=== PATIENT | female | born 1940 | race Caucasian/White ===

== ENCOUNTER 2016-04-22 00:11 | Emergency (ER) | payer OTHER ==
[~2016-04-22] VITALS: Ht 165.1 cm; Wt 142.7 kg
[~2016-04-22 00:11] MED LIST: ACETAMINOPHEN325 M1 PO; ACIDOPHILUS PROB1 MG PO; ADVAIR 250-501 EACH IH; ADVAIR 250/501 DISK IH; ADVAIR 500/501 DISK IH; ALBUTEROL2.5 MG/3 M IH; ALPRAZOLAM0.25 M2 PO; ALPRAZOLAM0.5 MG PO; AMLODIPINE BESY10 MG PO; AMLODIPINE BESYL5 MG PO; AMMONIUM LACTA224 GM TP; ANALGESIC325 MG PO; ARTIFICIAL TEA3.5 GM OP; ARTIFICIAL TEAR1510 BOTH EYES; ASPIR-TRIN325 M1 PO; ASPIRIN EC325 MG PO; ASPIRIN325 MG PO; ATARAX,VISTARIL25 MG PO; ATHENOL325 MG PO; ATIVAN2 MG/ML IV; ATROVENT 0.03%30 ML BOTH NARES; ATROVENT 00.5 MG/2.5 IH; AYR50 ML BOTH NARES; AZACTAM1 GM IM; AZITHROMYCIN500 M1 PO; Advair 250/50 Diskus IH; BACTRIM,SEPT1 TABLET PO; BENADRYL25 MG PO; BISAC-EVAC10 MG PR; BUMETANIDE0.5 MG PO; BUMETANIDE1 MG PO; BUMEX0.5 MG PO; BUMEX1 MG PO; Bactrim,Septra DS 80 PO; Bumex PO; CALCIUM 600 +1 EA11 PO; CALCIUM 600 +1 EAC2 PO; CALCIUM500 M4 PO; CARVEDILOL12.5 MG PO; CEFEPIME HCL1 GM IV; CEFTIN500 MG PO; CEFUROXIME500 MG PO; CEPACOL SORE THR3 MG MM; CLARITIN,ALAVAR10 MG PO; CLARITIN10 M3 PO; CLINDAMYCIN HC300 MG PO; COLACE100 MG PO; COREG12.5 M1 PO; COREG12.5 MG PO; COREG25 M1 PO; CORTICOOL 1%42.53 GM TP; COUGH CONT100 MG/5 M PO; COUGH SYRU100 MG/5 M PO; COUMADIN,JANTO2.5 MG PO; COUMADIN,JANTOVE2 MG PO; COUMADIN,JANTOVE5 MG PO; COUMADIN1 MG PO; COUMADIN2 MG PO; COUMADIN2.5 MG PO; COUMADIN3 M1 PO; COUMADIN3 MG PO; COUMADIN4 MG PO; COUMADIN5 MG PO; CRANBERRY450 M1 PO; CRANBERRY450 M2 PO; CRANBERRY450 M3 PO; CYMBALTA60 MG PO; Colace PO; Coreg PO; Coumadin dosing per PO; Cymbalta PO; DELTASONE20 MG PO; DEXTROSE 50%50 ML IV; DIABETIC T100 MG/5 M PO; DIFLUCAN100 MG PO; DOCUSATE SODIU100 MG PO; DOXYCYCLINE HY100 M1 PO; DULCOLAX10 MG PR; DUONEB 2.5-0.5 M3 ML IH; Diflucan PO; ENDOCET 5-3251 EACH PO; ENJUVIA0.45 MG PO; ESOMEPRAZOLE MA40 MG PO; Ecotrin PO; FENOFIBRATE145 M1 PO; FEOSOL325 MG PO; FERROUS SULFAT325 MG PO; FIBER350 GM PO; FLAGYL500 MG PO; FLEET ENEMA-AD118 ML PR; FLEXERIL5 M1 PO; FLORANEX CHE1 TABLET PO; Feosol PO; GAS RELIEF 8080 MG PO; GAS-X80 MG PO; GLUCAGEN1 MG IM/SC; GLUCOPHAGE500 MG PO; GUAIFENESIN400 MG PO; HALDOL5 MG/M1 IV; HYDROCHLOROTH12.5 M3 PO; HYDROCHLOROTHIA25 MG PO; HYDROXYZINE HCL25 MG PO; IMDUR30 MG PO; IMDUR60 MG PO; INVANZ1 GM IV; IPRATROPIU0.2 MG/1 M IH; IRON325 M1 PO; IRON325 MG PO; K-DUR20 MEQ PO; KEFLEX500 MG PO; KENALOG,ARISTOC15 G2 TP; KLOR-CON 1010 ME1 PO; KLOR-CON M1010 MEQ PO; LAC-HYDRIN 12%140 GM TP; LANTUS 10100 UNITS/ SC; LANTUS 3 M100 UNITS/ SC; LANTUS 3 M100 UNITS1 SC; LANTUS 3 M100 UNITS1 SQ; LINEZOLID600 MG PO; LITE COAT ASPI325 M1 PO; LORATADINE10 M2 PO; LOSARTAN POTASS50 MG PO; LOVENOX40 MG/0.4 SC; LYRICA100 MG PO; LYRICA150 MG PO; LYRICA75 MG PO; METAMUCIL0.52 GM PO; METFORMIN HCL1000 MG PO; METFORMIN HCL500 MG PO; MILK OF MAGN PO; MITRAZOL POWDER30 GM TP; MONISTAT 744 GM TP; MONISTAT DERM TP; MONISTAT SOOTHI42 GM TP; MONTELUKAST SOD10 MG PO; MSIR15 MG PO; MUCUS RELIEF PO; MUCUS RELIEF400 MG PO; MULTIVITAMIN1 EAC2 PO; Maxipime IV; Metamucil Capsule PO; Mitrazol 2% Cream TP; Mycostatin,Nystop Po TP; Mylicon,Mylanta Gas, PO; NEXIUM40 MG PO; NORVASC10 MG PO; NORVASC5 M1 PO; NOVOLOG PE100 UNITS/ SC; NYSTATIN15 GM TP; Nitrostat,NitroQuick SL; OCEAN NASAL 0.645 ML BOTH NARES; OXYCODONE HCL E10 MG PO; OXYCODONE15 MG PO; OXYCONTIN10 MG PO; OXYCONTIN20 MG PO; PERCOCET 10/1 TABLET PO; PERCOCET 5/31 TABLET PO; PHENERGAN25 MG PR; PHILLIPS'400 MG/5 M PO; PLAVIX75 MG PO; POTASSIUM CHLO10 ME4 PO; POTASSIUM CHLO20 ME2 PO; PREDNISONE10 MG PO; PREDNISONE20 M1 PO; PREDNISONE20 MG PO; PREDNISONE50 MG PO; PREMARIN0.45 MG PO; PROBIOTIC1 EAC1 PO; PROMETHAZINE HC25 M1 PO; PROTONIX40 MG PO; PROVENTIL,2.5 MG/0.5 IH; PROVENTIL,2.5 MG/3 M IH; Percocet 5/325,Endoc PO; ROBITUSSIN100 MG/5 M PO; SALINE NASAL SP45 ML ALT NARES; SALINE NASAL SP45 ML BOTH NARES; SENNA8.6 MG PO; SIMETHICONE80 MG PO; SINGULAIR10 MG PO; SORE THROAT SP177 M1 MM; Singulair PO; TOPROL XL100 MG PO; TRICOR145 MG PO; TUMS500 MG PO; TUSSIN400 MG PO; TYGACIL IV; TYLENOL REGULA325 MG PO; Tylenol Regular Stre PO; UNKNOWN MEDS; VIBRAMYCIN100 MG PO; Vancocin Oral Solution PO; WARFARIN SODIU2.5 MG PO; WARFARIN SODIUM1 MG PO; WARFARIN SODIUM2 MG PO; WARFARIN SODIUM4 MG PO; WARFARIN SODIUM5 MG PO; XANAX0.25 MG PO; XANAX0.5 MG PO; Xanax PO; ZESTRIL,PRINIVI10 M1 PO; ZESTRIL,PRINIVIL5 MG PO; ZOFRAN4 MG/2 ML IV; ZYVOX600 MG PO; Zestril,Prinivil PO; predniSONE PO
[2016-04-22 02:12] LABS: HEMATOCRIT 41.9 % (36.0-46.0); MCH 27.9 PG (29.0-34.0); MCHC 32.7 G/DL (30.0-36.0); MCV 85.3 FL (83-99); MEAN PLAT.VOLUME 10.6 uM^3 (9.5-12.4); PLATELET COUNT 193 K/uL (156-360); RBC DIS.WIDTH-CV 15.5 % (11.8-14.6); RBC DIS.WIDTH-SD 48.1 % (39-53); RED BLOOD COUNT 4.91 M/uL (3.80-5.20); WHITE BLOOD COUNT 11.6 K/uL (4.1-10.2)
[2016-04-22 02:21] LABS: INTER. NORMALIZED RATIO 2.3; PROTHROMBIN TIME 24.1 (9.2-11.2); PTT 41.8 (25-32)
[2016-04-22 02:26] LABS: CHLORIDE 97 mEq/L (99-109); POTASSIUM 4.1 mEq/L (3.7-5.4); SODIUM 141 mEq/L (136-147)
[2016-04-22 02:28] LABS: GLUCOSE 134 mg/dL (70-99)
[2016-04-22 02:29] LABS: ANION GAP 9 MEQ/L (2-14)
[2016-04-22 02:32] LABS: GFR ESTIMATE (CALCULATED) 52 mL/min/
[2016-04-22 02:33] LABS: UREA NITROGEN (BUN) 29 mg/dL (9-23)
[2016-04-22] MEDS ORDERED: SILVADENE20 GM TP (02:35)
[2016-04-22] MEDS ORDERED: BACTRIM,SEPT1 TABLET PO (02:35)
[2016-04-22 05:36] VITALS: BP 139/60
== END 2016-04-22 05:39 ==
LOC: EME → EDBD 00:11 → EME 00:11
PROVIDERS: Emergency Medicine
DX: T24.111A Burn of first degree of right thigh, initial encounter (principal); L03.115 Cellulitis of right lower limb; E66.9 Obesity, unspecified; E11.9 Type 2 diabetes mellitus without complications; J44.9 Chronic obstructive pulmonary disease, unspecified; X10.1XXA Contact with hot food, initial encounter; Y92.129 Unspecified place in nursing home as the place of occurrence of the external cause; Z99.81 Dependence on supplemental oxygen
CPT/HCPCS: 80048; 85027; 85610; 85730; 93971; 99281; 99284

== ENCOUNTER 2016-09-19 19:32 | Emergency (ER) | payer OTHER ==
[~2016-09-19] VITALS: Ht 165.1 cm; Wt 139.8 kg
[~2016-09-19 19:32] MED LIST changes: +SILVADENE20 GM TP
[2016-09-19] MEDS ORDERED: CLEOCIN300 MG PO (22:08)
[2016-09-20 00:26] VITALS: BP 119/86
== END 2016-09-20 00:27 ==
LOC: EME 19:32
DX: L03.116 Cellulitis of left lower limb (principal); S80.12XA Contusion of left lower leg, initial encounter; V00.838A Other accident with motorized mobility scooter, initial encounter; Y92.129 Unspecified place in nursing home as the place of occurrence of the external cause; E11.9 Type 2 diabetes mellitus without complications; Z79.84 Long term (current) use of oral hypoglycemic drugs; Z79.4 Long term (current) use of insulin; Z79.01 Long term (current) use of anticoagulants; Z79.82 Long term (current) use of aspirin; I10 Essential (primary) hypertension; J45.909 Unspecified asthma, uncomplicated; Z99.81 Dependence on supplemental oxygen; Z88.8 Allergy status to other drugs, medicaments and biological substances; Z88.1 Allergy status to other antibiotic agents; Z87.891 Personal history of nicotine dependence
CPT/HCPCS: 73590; 99281; 99284